=== PATIENT | female | born 1980 | race Caucasian/White ===

== ENCOUNTER 2018-05-30 07:40 | Emergency (ER) | payer OTHER ==
[~2018-05-30] VITALS: Ht 165.1 cm; Wt 82.0 kg
[~2018-05-30 07:40] MED LIST: PREN1TAB52 PO
[2018-05-30] MEDS ORDERED: ONDANSETRON 2MG/ML, 2ML ONE (08:51)
[2018-05-30] MEDS ORDERED: MORPHINE SULFATE 4 MG/ML, 1ML ONE ×2 (08:52→09:55)
[2018-05-30] MEDS ORDERED: SODIUM CHLORIDE FLUSH 10ML SYR IVF ONE (09:00)
[2018-05-30] MEDS: MORPHINE SULFATE 4 MG/ML, 1ML IVPush PRN ×2 (09:00→09:56)
[2018-05-30] MEDS ORDERED: ONDANSETRON 2MG/ML, 2ML IVPush ONE (09:00)
[2018-05-30] MEDS ORDERED: SODIUM CHLORIDE 0.9% 1,000ML IVBOLUS ONE (09:00)
[2018-05-30 09:06] LABS: CULTURE INDICATED? YES; MICROSCOPIC INDICATED
[2018-05-30 09:25] LABS: BASOPHILS # (AUTO) 0.04 x10^3/uL (0-0.1); BASOPHILS % (AUTO) 1 % (0-1); EOSINOPHILS # (AUTO) 0.25 x10^3/uL (0-0.4); EOSINOPHILS % (AUTO) 4 % (1-7); LYMPHOCYTES # (AUTO) 1.35 x10^3/uL (1-3.4); LYMPHOCYTES % (AUTO) 20 % (22-44); MD NO; MEAN CORPUSCULAR HEMOGLOBIN 19.3 pg (27.0-34.8); MEAN CORPUSCULAR VOLUME 62.3 fL (80-100); MEAN PLATELET VOLUME 7.6 fL (7.4-10.4); MONOCYTES # (AUTO) 0.35 x10^3/uL (0.2-0.8); MONOCYTES % (AUTO) 5 % (2-9); NEUTROPHILS # (AUTO) 4.66 x10^3/uL (1.8-6.8); NEUTROPHILS % (AUTO) 70 % (42-75); PLATELET COUNT 362 x10^3/uL (130-400); RED BLOOD COUNT 4.83 x10^6/uL (3.82-5.3); RED CELL DISTRIBUTION WIDTH 18.8 % (9.6-15.2)
[2018-05-30 09:33] LABS: ALANINE AMINOTRANSFERASE 26 U/L (12-78); ALBUMIN 3.6 g/dL (3.4-5.0); ANION GAP 9 mmol/L (5-15); CALCIUM 9.5 mg/dL (8.5-10.1); CHLORIDE 108 mmol/L (98-107)
[2018-05-30 09:37] LABS: ALKALINE PHOSPHATASE 59 U/L (45-117); BILIRUBIN,TOTAL 0.4 mg/dL (0.2-1.0); TOTAL PROTEIN 8.3 g/dL (6.4-8.2)
[2018-05-30] MEDS ORDERED: CEFTRIAXONE 1,000 MG in SODIUM CHLORIDE 0.9% 50 ML IV STA (09:52)
[2018-05-30] MEDS ORDERED: CEFTRIAXONE PMX 1GM/50ML 50 ML ONE (10:00)
[2018-05-30] MEDS ORDERED: CEFTRIAXONE 1,000 MG in SODIUM CHLORIDE 0.9% 50 ML IV SCH (10:30)
[2018-05-30] MEDS ORDERED: HYDROmorphone 2 MG/ML, 1ML ONE (10:55)
[2018-05-30 10:59] VITALS: BP 115/79
[2018-05-30] MEDS ORDERED: HYDROmorphone 2 MG/ML, 1ML IVPush PRN (11:00)
[2018-05-31] MEDS ORDERED: CHOL100011 PO (14:43)
[2018-05-31] MEDS ORDERED: SERT50TA PO (14:43)
[2018-05-31] MEDS ORDERED: OMEP20TA62 PO (14:43)
== END 2018-05-30 11:45 | disposition home or self-care (01) ==
LOC: ED 09:29
DX: N10 Acute pyelonephritis (principal)
CPT/HCPCS: 36415; 74176; 80053; 81001; 84703; 85025; 87040; 87086; 93005; 96361; 96365; 96375; 96376; 99285; J0696; J1170; J2405; J7030

== ENCOUNTER 2018-05-31 12:51 | Inpatient (IN) | payer OTHER ==
[~2018-05-31] VITALS: Ht 165.1 cm; Wt 101.1 kg
[2018-05-31] MEDS ORDERED: SODIUM CHLORIDE FLUSH 10ML SYR IVF ONE (13:30)
[2018-05-31 13:43] LABS: BASOPHILS # (AUTO) 0.14 x10^3/uL (0-0.1); BASOPHILS % (AUTO) 1 % (0-1); EOSINOPHILS # (AUTO) 0.16 x10^3/uL (0-0.4); EOSINOPHILS % (AUTO) 1 % (1-7); LYMPHOCYTES # (AUTO) 1.66 x10^3/uL (1-3.4); LYMPHOCYTES % (AUTO) 12 % (22-44); MD NO; MEAN CORPUSCULAR HEMOGLOBIN 19.9 pg (27.0-34.8); MEAN CORPUSCULAR HGB CONC 31.3 g/dL (32.4-35.8); MEAN CORPUSCULAR VOLUME 63.5 fL (80-100); MEAN PLATELET VOLUME 7.5 fL (7.4-10.4); MONOCYTES # (AUTO) 0.61 x10^3/uL (0.2-0.8); MONOCYTES % (AUTO) 4 % (2-9); NEUTROPHILS # (AUTO) 11.46 x10^3/uL (1.8-6.8); NEUTROPHILS % (AUTO) 82 % (42-75); PLATELET COUNT 371 x10^3/uL (130-400); RED BLOOD COUNT 4.75 x10^6/uL (3.82-5.3); RED CELL DISTRIBUTION WIDTH 18.7 % (9.6-15.2)
[2018-05-31 13:45] LABS: ALANINE AMINOTRANSFERASE 22 U/L (12-78); ALBUMIN 3.6 g/dL (3.4-5.0); ANION GAP 9 mmol/L (5-15); CALCIUM 9.2 mg/dL (8.5-10.1); CHLORIDE 104 mmol/L (98-107); CREATININE 1.48 mg/dL (0.55-1.02)
[2018-05-31 13:46] LABS: CULTURE INDICATED? YES; MICROSCOPIC INDICATED
[2018-05-31 13:47] LABS: ALKALINE PHOSPHATASE 58 U/L (45-117); BILIRUBIN,TOTAL 0.6 mg/dL (0.2-1.0); TOTAL PROTEIN 7.7 g/dL (6.4-8.2)
[2018-05-31] MEDS ORDERED: ONDANSETRON 2MG/ML, 2ML ONE (14:27)
[2018-05-31] MEDS ORDERED: CEFTRIAXONE PMX 1GM/50ML 50 ML ONE (14:27)
[2018-05-31] MEDS ORDERED: CEFTRIAXONE 1,000 MG in SODIUM CHLORIDE 0.9% 50 ML IV ONE (14:30)
[2018-05-31] MEDS ORDERED: ONDANSETRON 2MG/ML, 2ML IVPush ONE (14:30)
[2018-05-31] MEDS ORDERED: CHOL100011 PO (14:43)
[2018-05-31] MEDS ORDERED: OMEP20TA62 PO (14:43)
[2018-05-31] MEDS ORDERED: SERT50TA PO (14:43)
[2018-05-31] MEDS ORDERED: CEFTRIAXONE 2 GM in SODIUM CHLORIDE 0.9% 50 ML IV SCH (15:30)
[2018-05-31] MEDS ORDERED: ACETAMINOPHEN 325 MG TABLET PO PRN (15:30)
[2018-05-31] MEDS ORDERED: ONDANSETRON ODT 4 MG PO PRN (15:30)
[2018-05-31] MEDS ORDERED: DOCUSATE 100 MG CAPSULE PO PRN (15:30)
[2018-05-31 15:32] VITALS: BP 112/66
[2018-05-31] MEDS ORDERED: PHARMACY MAY ADJ FOR RENAL FX MC PRN (16:00)
[2018-05-31] MEDS: ONDANSETRON 2MG/ML, 2ML IVPush PRN (16:00)
[2018-05-31] MEDS ORDERED: CEFTRIAXONE 1,000 MG in SODIUM CHLORIDE 0.9% 50 ML IVPB ONE (16:04)
[2018-05-31] MEDS: SODIUM CHLORIDE 0.9% 1,000 ML IV SCH ×2 (17:09→22:50)
[2018-05-31] MEDS: morphine SULFATE 10 MG/ML, 1ML IVPush PRN ×2 (17:09→20:35)
[2018-05-31 19:07] VITALS: BP 122/79
[2018-05-31] MEDS: PANTOPRAZOLE 40 MG IV IVPush SCH (20:35)
[2018-05-31] MEDS: HEPARIN 5,000 UNITS/ML, 1ML SQ SCH (22:41)
[2018-06-01] MEDS: morphine SULFATE 10 MG/ML, 1ML IVPush PRN ×3 (00:18→08:16)
[2018-06-01 00:31] VITALS: BP 103/67
[2018-06-01] MEDS: SODIUM CHLORIDE 0.9% 1,000 ML IV SCH ×4 (05:00→19:33)
[2018-06-01 06:12] LABS: ANION GAP 7 mmol/L (5-15); CALCIUM 7.9 mg/dL (8.5-10.1); CHLORIDE 109 mmol/L (98-107); CREATININE 1.31 mg/dL (0.55-1.02)
[2018-06-01 06:19] LABS: BASOPHILS # (AUTO) 0.04 x10^3/uL (0-0.1); BASOPHILS % (AUTO) 1 % (0-1); EOSINOPHILS # (AUTO) 0.14 x10^3/uL (0-0.4); EOSINOPHILS % (AUTO) 2 % (1-7); LYMPHOCYTES # (AUTO) 1.46 x10^3/uL (1-3.4); LYMPHOCYTES % (AUTO) 17 % (22-44); MD NO; MEAN CORPUSCULAR HEMOGLOBIN 20.5 pg (27.0-34.8); MEAN CORPUSCULAR HGB CONC 32.2 g/dL (32.4-35.8); MEAN CORPUSCULAR VOLUME 63.8 fL (80-100); MEAN PLATELET VOLUME 7.9 fL (7.4-10.4); MONOCYTES # (AUTO) 0.55 x10^3/uL (0.2-0.8); MONOCYTES % (AUTO) 6 % (2-9); NEUTROPHILS # (AUTO) 6.31 x10^3/uL (1.8-6.8); NEUTROPHILS % (AUTO) 74 % (42-75); PLATELET COUNT 297 x10^3/uL (130-400); RED BLOOD COUNT 3.77 x10^6/uL (3.82-5.3); RED CELL DISTRIBUTION WIDTH 18.5 % (9.6-15.2)
[2018-06-01] MEDS: HEPARIN 5,000 UNITS/ML, 1ML SQ SCH ×2 (06:22→12:06)
[2018-06-01 07:00] VITALS: BP 112/74
[2018-06-01] MEDS: IRON SUCROSE COMPLEX 100MG/5ML IV SCH (08:15)
[2018-06-01] MEDS: PANTOPRAZOLE 40 MG IV IVPush SCH ×2 (08:16→22:41)
[2018-06-01] MEDS: SERTRALINE 50MG TABLET PO SCH (08:17)
[2018-06-01] MEDS: ASCORBIC ACID 500 MG TABLET PO SCH (11:59)
[2018-06-01] MEDS: HYDROcodone/APAP 5/325 TABLET PO PRN ×3 (11:59→19:32)
[2018-06-01] MEDS: POLYETHYLENE GLYCOL 17 GM PACKET PO PRN (11:59)
[2018-06-01 12:41] VITALS: BP 115/77
[2018-06-01] MEDS: TAMSULOSIN 0.4 MG CAP.ER.24H PO SCH (13:30)
[2018-06-01] MEDS: CEFTRIAXONE 2 GM in SODIUM CHLORIDE 0.9% 50 ML IV SCH (15:29)
[2018-06-01 19:36] VITALS: BP 120/77
[2018-06-01] MEDS: DOCUSATE 100 MG CAPSULE PO SCH (21:00)
[2018-06-02] VITALS (10 sets, daily range): BP systolic 108–143; BP diastolic 72–83
[2018-06-02] MEDS ORDERED: MORPHINE SULFATE 4 MG/ML, 1ML IVPush PRN (01:30)
[2018-06-02] MEDS: HYDROcodone/APAP 5/325 TABLET PO PRN (02:30)
[2018-06-02] MEDS: SODIUM CHLORIDE 0.9% 1,000 ML IV SCH ×3 (03:00→16:32)
[2018-06-02 03:07] LABS: MEAN CORPUSCULAR HGB CONC 31.3 g/dL (32.4-35.8); MEAN CORPUSCULAR VOLUME 63.8 fL (80-100); MEAN PLATELET VOLUME 8.1 fL (7.4-10.4); PLATELET COUNT 291 x10^3/uL (130-400); RED BLOOD COUNT 3.53 x10^6/uL (3.82-5.3); RED CELL DISTRIBUTION WIDTH 18.5 % (9.6-15.2)
[2018-06-02 03:14] LABS: ANION GAP 7 mmol/L (5-15); CALCIUM 7.6 mg/dL (8.5-10.1); CHLORIDE 110 mmol/L (98-107); CREATININE 1.14 mg/dL (0.55-1.02)
[2018-06-02 03:16] LABS: ANISOCYTOSIS 1+; BASOPHILS # (AUTO) 0.05 x10^3/uL (0-0.1); BASOPHILS % (AUTO) 1 % (0-1); EOSINOPHILS # (AUTO) 0.06 x10^3/uL (0-0.4); EOSINOPHILS % (AUTO) 1 % (1-7); LYMPHOCYTES # (AUTO) 1.16 x10^3/uL (1-3.4); LYMPHOCYTES % (AUTO) 16 % (22-44); MD MORPH REVIEW ONLY; MONOCYTES # (AUTO) 0.43 x10^3/uL (0.2-0.8); MONOCYTES % (AUTO) 6 % (2-9); NEUTROPHILS # (AUTO) 5.65 x10^3/uL (1.8-6.8); NEUTROPHILS % (AUTO) 77 % (42-75)
[2018-06-02 03:17] LABS: MICROCYTOSIS 2+; OVALOCYTES 1+; POLYCHROMASIA 1+
[2018-06-02 03:18] LABS: <PLATELET ESTIMATE> ADEQUATE; <PLT MORPHOLOGY> NORMAL PLT MORPH; TEAR DROPS 1+
[2018-06-02] MEDS: TAMSULOSIN 0.4 MG CAP.ER.24H PO SCH (09:00)
[2018-06-02] MEDS: ASCORBIC ACID 500 MG TABLET PO SCH (09:00)
[2018-06-02] MEDS: SERTRALINE 50MG TABLET PO SCH (09:00)
[2018-06-02] MEDS: DOCUSATE 100 MG CAPSULE PO SCH ×2 (09:00→20:04)
[2018-06-02] MEDS: IRON SUCROSE COMPLEX 100MG/5ML IV SCH (10:39)
[2018-06-02] MEDS: PANTOPRAZOLE 40 MG IV IVPush SCH ×2 (10:39→20:30)
[2018-06-02] MEDS: HYDROmorphone 2 MG/ML, 1ML IVPush PRN ×3 (10:39→20:29)
[2018-06-02] MEDS: CEFTRIAXONE 2 GM in SODIUM CHLORIDE 0.9% 50 ML IV SCH (16:32)
[2018-06-02 21:22] LABS: AMPHETAMINE SCREEN, URINE Negative (Negative); BARBITURATE SCREEN, URINE Negative (Negative); BENZODIAZEPINE SCREEN, URINE Positive (Negative); CANNABINOID SCREEN, URINE Negative (Negative); COCAINE SCREEN, URINE Negative (Negative); METHADONE SCREEN, URINE Negative (Negative); OPIATE SCREEN, URINE Positive (Negative)
[2018-06-03] MEDS: SODIUM CHLORIDE 0.9% 1,000 ML IV SCH ×2 (00:11→08:35)
[2018-06-03] MEDS: HYDROmorphone 2 MG/ML, 1ML IVPush PRN ×3 (01:32→10:27)
[2018-06-03 04:03] VITALS: BP 114/77
[2018-06-03 06:13] LABS: ANION GAP 8 mmol/L (5-15); CALCIUM 7.5 mg/dL (8.5-10.1); CHLORIDE 110 mmol/L (98-107); CREATININE 0.93 mg/dL (0.55-1.02)
[2018-06-03] MEDS: ONDANSETRON 2MG/ML, 2ML IVPush PRN ×2 (06:15→13:00)
[2018-06-03 06:19] LABS: MEAN CORPUSCULAR HEMOGLOBIN 21.8 pg (27.0-34.8); MEAN CORPUSCULAR VOLUME 68.1 fL (80-100); MEAN PLATELET VOLUME 7.8 fL (7.4-10.4); PLATELET COUNT 333 x10^3/uL (130-400); RED BLOOD COUNT 4.21 x10^6/uL (3.82-5.3); RED CELL DISTRIBUTION WIDTH 23.5 % (9.6-15.2)
[2018-06-03 06:53] LABS: BASOPHILS % (AUTO) 1 % (0-1); EOSINOPHILS # (AUTO) 0.27 x10^3/uL (0-0.4); EOSINOPHILS % (AUTO) 4 % (1-7); LYMPHOCYTES # (AUTO) 1.53 x10^3/uL (1-3.4); LYMPHOCYTES % (AUTO) 20 % (22-44); MD SCAN; MONOCYTES # (AUTO) 0.43 x10^3/uL (0.2-0.8); MONOCYTES % (AUTO) 6 % (2-9); NEUTROPHILS # (AUTO) 5.28 x10^3/uL (1.8-6.8); NEUTROPHILS % (AUTO) 69 % (42-75)
[2018-06-03 07:39] VITALS: BP 118/78
[2018-06-03] MEDS: ASCORBIC ACID 500 MG TABLET PO SCH (08:27)
[2018-06-03] MEDS: TAMSULOSIN 0.4 MG CAP.ER.24H PO SCH (08:27)
[2018-06-03] MEDS: SERTRALINE 50MG TABLET PO SCH (08:27)
[2018-06-03] MEDS: IRON SUCROSE COMPLEX 100MG/5ML IV SCH (08:27)
[2018-06-03] MEDS: PANTOPRAZOLE 40 MG IV IVPush SCH ×2 (08:27→19:32)
[2018-06-03] MEDS: DOCUSATE 100 MG CAPSULE PO SCH ×2 (08:27→19:32)
[2018-06-03] MEDS ORDERED: HYDROmorphone 2 MG/ML, 1ML IVPush PRN (14:00)
[2018-06-03] MEDS: HYDROcodone/APAP 5/325 TABLET PO PRN ×2 (14:16→19:32)
[2018-06-03 15:10] VITALS: BP 113/74
[2018-06-03] MEDS: CEFTRIAXONE 2 GM in SODIUM CHLORIDE 0.9% 50 ML IV SCH (16:15)
[2018-06-03 20:29] VITALS: BP 111/73
[2018-06-04] MEDS: HYDROcodone/APAP 5/325 TABLET PO PRN ×3 (01:24→19:49)
[2018-06-04 02:18] VITALS: BP 108/69
[2018-06-04 06:00] LABS: MEAN CORPUSCULAR HEMOGLOBIN 21.8 pg (27.0-34.8); MEAN CORPUSCULAR HGB CONC 31.6 g/dL (32.4-35.8); MEAN CORPUSCULAR VOLUME 68.9 fL (80-100); MEAN PLATELET VOLUME 7.2 fL (7.4-10.4); PLATELET COUNT 373 x10^3/uL (130-400); RED BLOOD COUNT 4.15 x10^6/uL (3.82-5.3); RED CELL DISTRIBUTION WIDTH 24.3 % (9.6-15.2)
[2018-06-04 06:01] LABS: ANION GAP 8 mmol/L (5-15); CALCIUM 7.7 mg/dL (8.5-10.1); CHLORIDE 110 mmol/L (98-107); CREATININE 0.96 mg/dL (0.55-1.02)
[2018-06-04 06:37] LABS: BASOPHILS # (AUTO) 0.13 x10^3/uL (0-0.1); BASOPHILS % (AUTO) 2 % (0-1); EOSINOPHILS # (AUTO) 0.38 x10^3/uL (0-0.4); EOSINOPHILS % (AUTO) 5 % (1-7); LYMPHOCYTES # (AUTO) 1.22 x10^3/uL (1-3.4); LYMPHOCYTES % (AUTO) 17 % (22-44); MD SCAN; MONOCYTES # (AUTO) 0.39 x10^3/uL (0.2-0.8); MONOCYTES % (AUTO) 6 % (2-9); NEUTROPHILS % (AUTO) 70 % (42-75)
[2018-06-04 07:55] VITALS: BP 132/81
[2018-06-04] MEDS: TAMSULOSIN 0.4 MG CAP.ER.24H PO SCH (09:00)
[2018-06-04] MEDS: ASCORBIC ACID 500 MG TABLET PO SCH (09:24)
[2018-06-04] MEDS: IRON SUCROSE COMPLEX 100MG/5ML IV SCH (09:24)
[2018-06-04] MEDS: PANTOPRAZOLE 40 MG IV IVPush SCH (09:24)
[2018-06-04] MEDS: SERTRALINE 50MG TABLET PO SCH (09:25)
[2018-06-04] MEDS: DOCUSATE 100 MG CAPSULE PO SCH ×2 (09:25→19:15)
[2018-06-04 13:39] VITALS: BP 108/69
[2018-06-04] MEDS: CEFTRIAXONE 2 GM in SODIUM CHLORIDE 0.9% 50 ML IV SCH (16:47)
[2018-06-04] MEDS: IBUPROFEN 200 MG TABLET PO PRN (16:47)
[2018-06-04] MEDS: PANTOPROZOLE 40MG TABLET PO SCH (16:47)
[2018-06-04] MEDS: POLYETHYLENE GLYCOL 17 GM PACKET PO PRN (16:47)
[2018-06-04 19:02] VITALS: BP 128/84
[2018-06-05 02:06] VITALS: BP 125/82
[2018-06-05] MEDS: IBUPROFEN 200 MG TABLET PO PRN ×2 (02:45→13:26)
[2018-06-05 07:23] VITALS: BP 133/88
[2018-06-05] MEDS: PANTOPROZOLE 40MG TABLET PO SCH (08:39)
[2018-06-05] MEDS: IRON SUCROSE COMPLEX 100MG/5ML IV SCH (08:39)
[2018-06-05] MEDS: SERTRALINE 50MG TABLET PO SCH (08:39)
[2018-06-05] MEDS: DOCUSATE 100 MG CAPSULE PO SCH (08:40)
[2018-06-05] MEDS: TAMSULOSIN 0.4 MG CAP.ER.24H PO SCH (08:40)
[2018-06-05] MEDS: ASCORBIC ACID 500 MG TABLET PO SCH (08:40)
[2018-06-05 08:45] LABS: MEAN CORPUSCULAR HEMOGLOBIN 21.7 pg (27.0-34.8); MEAN CORPUSCULAR HGB CONC 31.9 g/dL (32.4-35.8); MEAN PLATELET VOLUME 7.5 fL (7.4-10.4); PLATELET COUNT 398 x10^3/uL (130-400); RED BLOOD COUNT 4.42 x10^6/uL (3.82-5.3); RED CELL DISTRIBUTION WIDTH 24.6 % (9.6-15.2)
[2018-06-05 08:56] LABS: ANION GAP 7 mmol/L (5-15); CHLORIDE 107 mmol/L (98-107); CREATININE 0.96 mg/dL (0.55-1.02)
[2018-06-05 09:29] LABS: MD YES
[2018-06-05 09:31] LABS: ANISOCYTOSIS 2+; EOS#(MANUAL) 0.06 x10^3/uL (0.0-0.4); EOS% (MANUAL) 1 % (1-7); LYMPH#(MANUAL) 1.09 x10^3/uL (1-3.4); LYMPHS% (MANUAL) 17 % (22-44); METAMYELOCYTES# (MANUAL) 0.06 x10^3/uL (0-0); METAMYELOCYTES% (MANUAL) 1 % (0-1); MONOS#(MANUAL) 0.58 x10^3/uL (0.3-2.7); MONOS% (MANUAL) 9 % (2-9); SEG#(MANUAL) 4.61 x10^3/uL (1.8-6.8); SEGS% (MANUAL) 72 % (42-75)
[2018-06-05 09:33] LABS: <PLATELET ESTIMATE> INCREASED; ECHINOCYTES 1+; MICROCYTOSIS 2+; OVALOCYTES 1+; POLYCHROMASIA 1+
[2018-06-05 09:34] LABS: <PLT MORPHOLOGY> NORMAL PLT MORPH; HYPOCHROMIA 1+
[2018-06-05] MEDS ORDERED: POTASSIUM CHLORIDE 20 MEQ TAB.ER.PRT PO ONE (13:00)
[2018-06-05 13:05] VITALS: BP 100/61
[2018-06-05] MEDS: CEFTRIAXONE 2 GM in SODIUM CHLORIDE 0.9% 50 ML IV SCH (16:33)
[2018-06-05] MEDS ORDERED: ONDA4TAB10 PO (17:03)
[2018-06-05] MEDS ORDERED: CIPR500T87 PO (17:03)
== END 2018-06-05 18:04 | disposition home or self-care (01) | DRG 871 ==
LOC: ED 14:10 → EDIP 14:17 → 3NE 15:28
PROVIDERS: ADMIT Hospitalist; ATTEND Family Medicine
PROC: 30233N1 Transfusion of Nonautologous Red Blood Cells into Peripheral Vein, Percutaneous Approach (ICD-10-PCS; principal; 2018-06-02)
DX: A41.9 Sepsis, unspecified organism (principal); N17.0 Acute kidney failure with tubular necrosis; N12 Tubulo-interstitial nephritis, not specified as acute or chronic; D50.9 Iron deficiency anemia, unspecified; E66.01 Morbid (severe) obesity due to excess calories; F41.9 Anxiety disorder, unspecified; N36.8 Other specified disorders of urethra; B96.89 Other specified bacterial agents as the cause of diseases classified elsewhere; M54.9 Dorsalgia, unspecified; F32.9 Major depressive disorder, single episode, unspecified; G89.29 Other chronic pain; K59.00 Constipation, unspecified; Z68.37 Body mass index [BMI] 37.0-37.9, adult; Z82.49 Family history of ischemic heart disease and other diseases of the circulatory system; Z81.2 Family history of tobacco abuse and dependence; Z91.013 Allergy to seafood
CPT/HCPCS: 36415; 74018; 74176; 80048; 80053; 80307; 81001; 82728; 83540; 83550; 83605; 83735; 84100; 84466; 84703; 85014; 85018; 85025; 86850; 86900; 86923; 87040; 87086; 96374; 96375; 99285; J0696; J1170; J1644; J1756; J2405; C9113; J2270; J7030; P9016